=== PATIENT | male | born 1970 | race Caucasian/White ===

== ENCOUNTER 2024-09-23 12:07 | Emergency (ER) | payer MEDICAID ==
[~2024-09-23] VITALS: Ht 175.3 cm; Wt 75.0 kg
[2024-09-23 12:10] VITALS: TEMP 97.8
[2024-09-23] MEDS ORDERED: ibuprofen tablet 400 MG TABLET PO ONE (13:35)
[2024-09-23] MEDS: ibuprofen 200mg tablet PO ONE (13:49)
[2024-09-23] MEDS: Cipro HC otic suspension 10ML bottle RIGHT EAR SCH (13:54)
[2024-09-23 14:39] VITALS: BP 136/79; PULSE 79; RESP 17; O2SAT 97
== END 2024-09-23 14:40 | disposition home or self-care (01) ==
LOC: ER 12:09
DX: H60.8X1 Other otitis externa, right ear (principal)
CPT/HCPCS: 99283